=== PATIENT | female | born 1970 | race Caucasian/White ===

== ENCOUNTER 2024-03-16 07:39 | Observation (INO) | payer OTHER ==
--- NOTE | 2024-03-16 07:58 | ED ---
General Adult HPI - General Chief complaint: Chest Pain Stated complaint: Chest pain Time Seen by Provider: 03/16/24 07:43 Source: patient, EMS, RN notes reviewed Mode of arrival: EMS Limitations: no limitations - History of Present Illness Initial comments: Patient is a 53-year-old female present to the emergency department with concerns for chest discomfort. Onset of symptoms was an hour ago while getting ready for work. Patient has pressure in her chest rated 3/10. No radiation. No associated dyspnea, nausea, or diaphoresis. No history of similar symptoms previously. No history of cardiac disease. - Related Data Allergies Allergy/AdvReac Type Severity Reaction Status Date / Time No Known Allergies Allergy Verified 03/16/24 07:49 Review of Systems ROS Statement: Those systems with pertinent positive or pertinent negative responses have been documented in the HPI. ROS Other: All systems not noted in ROS Statement are negative. Constitutional: Denies: fever Eyes: Denies: eye pain ENT: Denies: ear pain Respiratory: Denies: cough, dyspnea Cardiovascular: Reports: as per HPI, chest pain Endocrine: Denies: fatigue Gastrointestinal: Denies: abdominal pain Genitourinary: Denies: dysuria Musculoskeletal: Denies: back pain Skin: Denies: rash Past Medical History Additional Past Medical History / Comment(s): Hyperthyroid History of Any Multi-Drug Resistant Organisms: None Reported Past Psychological History: No Psychological Hx Reported Smoking Status: Never smoker Past Alcohol Use History: None Reported Past Drug Use History: None Reported General Exam Limitations: no limitations General appearance: alert, in no apparent distress Head exam: Present: normocephalic Eye exam: Present: normal appearance Neck exam: Present: normal inspection Respiratory exam: Present: normal lung sounds bilaterally Cardiovascular Exam: Present: regular rate, normal rhythm, normal heart sounds Expanded Peripheral pulses: 2+: Radial (R), Radial (L), Posterior Tibialis (R), Posterior Tibialis (L) GI/Abdominal exam: Present: soft. Absent: tenderness Extremities exam: Present: normal inspection. Absent: pedal edema, calf tenderness Neurological exam: Present: alert Psychiatric exam: Present: normal affect, normal mood Skin exam: Present: normal color Course Vital Signs 03/16/24 03/16/24 07:45 08:19 Temperature 97.8 F 97.6 F Pulse Rate 71 68 Respiratory 18 16 Rate Blood Pressure 137/82 143/88 O2 Sat by Pulse 95 94 L Oximetry EKG Findings - EKG Results: EKG: interpreted by ERMD, sinus rhythm, normal axis, normal QRS, normal ST/T Medical Decision Making - Medical Decision Making Was pt. sent in by a medical professional or institution (ROME Cesar, RN ENT, urgent care, hospital, or [facility]...) When possible be specific @ -No Did you speak to anyone other than the patient for history (EMS, parent, family, police, friend...)? What history was obtained from this source @ -No Did you review nursing and triage notes (agree or disagree)? Why? @ -I reviewed and agree with nursing and triage notes Were old charts reviewed (outside hosp., previous admission, EMS record, old EKG, old radiological studies, urgent care reports/EKG's, [facility] records)? Report findings @ -No old charts were reviewed Differential Diagnosis (chest pain, altered mental status, abdominal pain women, abdominal pain men, vaginal bleeding, weakness, fever, dyspnea, syncope, headache, dizziness, GI bleed, back pain, seizure, CVA, palpatations, mental health, musculoskeletal)? @ -Differential Chest Pain: Stable Angina, Unstable Angina, STEMI, NSTEMI Aortic Dissection, Pneumothorax, Musculoskeletal, Esophageal Spasm GERD, Cholecystitis, Pancreatitis, Zoster, this is not meant to be an all-inclusive list. EKG interpreted by me (3pts min.). @ -As above X-rays interpreted by me (1pt min.). @ -Chest x-ray shows no acute process CT interpreted by me (1pt min.). @ -None done U/S interpreted by me (1pt. min.). @ -None done What testing was considered but not performed or refused? (CT, X-rays, U/S, labs)? Why? @ -None What meds were considered but not given or refused? Why? @ -None Did you discuss the management of the patient with other professionals (professionals i.e. ROME Cesar, RN ENT, lab, RT, psych nurse, social work assistant, forensic ballistics expert, teacher, radiation officer, rn field case manager)? Give summary @ -Case was discussed with practitioner Alejandro who will admit covering hospital call Was smoking cessation discussed for >3mins.? @ -No Was critical care preformed (if so, how long)? @ -No Were there social determinants of health that impacted care today? How? (Homelessness, low income, unemployed, alcoholism, drug addiction, transportation, low edu. Level, literacy, decrease access to med. care, custodial, rehab)? @ -No Was there de-escalation of care discussed even if they declined (Discuss DNR or withdrawal of care, Hospice)? DNR status @ -No What co-morbidities impacted this encounter? (DM, HTN, Smoking, COPD, CAD, Cancer, CVA, ARF, Chemo, Hep., AIDS, mental health diagnosis, sleep apnea, morbid obesity)? @ -None Was patient admitted / discharged? Hospital course, mention meds given and route, prescriptions, significant lab abnormalities, going to OR and other pertinent info. @ -Patient presents with chest discomfort. Initial evaluation unremarkable. Patient will be admitted with cardiac consult, mission orders written. Undiagnosed new problem with uncertain prognosis? @ -No Drug Therapy requiring intensive monitoring for toxicity (Heparin, Nitro, Insulin, Cardizem)? @ -No Were any procedures done? @ -No Diagnosis/symptom? @ -Chest pain Acute, or Chronic, or Acute on Chronic? @ -Acute Uncomplicated (without systemic symptoms) or Complicated (systemic symptoms)? @ -Default Side effects of treatment? @ -No Exacerbation, Progression, or Severe Exacerbation? @ -No Poses a threat to life or bodily function? How? (Chest pain, [place], [place], pneumonia, PE, COPD, DKA, ARF, appy, cholecystitis, CVA, Diverticulitis, Homicidal, Suicidal, threat to staff... and all critical care pts) @ -Threat to cardiac function - Lab Data Result diagrams: 03/16/24 07:50 03/16/24 07:50 Lab Results 03/16/24 03/16/24 03/16/24 Range/Units 07:50 07:50 07:50 WBC 4.7 (3.8-10.6) k/uL RBC 4.45 (3.80-5.40) m/uL Hgb 13.1 (11.4-16.0) gm/dL Hct 40.1 (34.0-46.0) % MCV 90.2 (80.0-100.0) fL MCH 29.4 (25.0-35.0) pg MCHC 32.6 (31.0-37.0) g/dL RDW 14.9 (11.5-15.5) % Plt Count 186 (150-450) k/uL MPV 7.1 Neutrophils % 54 % Lymphocytes % 38 % Monocytes % 4 % Eosinophils % 1 % Basophils % 1 % Neutrophils # 2.5 (1.3-7.7) k/uL Lymphocytes # 1.8 (1.0-4.8) k/uL Monocytes # 0.2 (0-1.0) k/uL Eosinophils # 0.0 (0-0.7) k/uL Basophils # 0.0 (0-0.2) k/uL PT 10.9 (10.0-12.5) sec INR 1.0 (<1.2) APTT 20.3 L (22.0-30.0) sec D-Dimer 0.35 (<0.60) mg/L FEU Sodium 140 (137-145) mmol/L Potassium 4.0 (3.5-5.1) mmol/L Chloride 109 H (98-107) mmol/L Carbon Dioxide 18 L (22-30) mmol/L Anion Gap 13 mmol/L BUN 20 H (7-17) mg/dL Creatinine 0.62 (0.52-1.04) mg/dL Est GFR (CKD-EPI)AfAm >90 (>60 ml/min/1.73 sqM) Est GFR (CKD-EPI)NonAf >90 (>60 ml/min/1.73 sqM) Glucose 106 H (74-99) mg/dL Calcium 9.1 (8.4-10.2) mg/dL Magnesium 1.9 (1.6-2.3) mg/dL Total Bilirubin 0.3 (0.2-1.3) mg/dL AST 26 (14-36) U/L ALT 20 (4-34) U/L Alkaline Phosphatase 89 (38-126) U/L Troponin I (0.000-0.034) ng/mL Total Protein 7.1 (6.3-8.2) g/dL Albumin 4.3 (3.5-5.0) g/dL Amylase 64 (30-110) U/L Lipase 270 (23-300) U/L 03/16/24 Range/Units 07:50 WBC (3.8-10.6) k/uL RBC (3.80-5.40) m/uL Hgb (11.4-16.0) gm/dL Hct (34.0-46.0) % MCV (80.0-100.0) fL MCH (25.0-35.0) pg MCHC (31.0-37.0) g/dL RDW (11.5-15.5) % Plt Count (150-450) k/uL MPV Neutrophils % % Lymphocytes % % Monocytes % % Eosinophils % % Basophils % % Neutrophils # (1.3-7.7) k/uL Lymphocytes # (1.0-4.8) k/uL Monocytes # (0-1.0) k/uL Eosinophils # (0-0.7) k/uL Basophils # (0-0.2) k/uL PT (10.0-12.5) sec INR (<1.2) APTT (22.0-30.0) sec D-Dimer (<0.60) mg/L FEU Sodium (137-145) mmol/L Potassium (3.5-5.1) mmol/L Chloride (98-107) mmol/L Carbon Dioxide (22-30) mmol/L Anion Gap mmol/L BUN (7-17) mg/dL Creatinine (0.52-1.04) mg/dL Est GFR (CKD-EPI)AfAm (>60 ml/min/1.73 sqM) Est GFR (CKD-EPI)NonAf (>60 ml/min/1.73 sqM) Glucose (74-99) mg/dL Calcium (8.4-10.2) mg/dL Magnesium (1.6-2.3) mg/dL Total Bilirubin (0.2-1.3) mg/dL AST (14-36) U/L ALT (4-34) U/L Alkaline Phosphatase (38-126) U/L Troponin I <0.012 (0.000-0.034) ng/mL Total Protein (6.3-8.2) g/dL Albumin (3.5-5.0) g/dL Amylase (30-110) U/L Lipase (23-300) U/L Disposition Clinical Impression: Chest pain Disposition: ADMITTED IP TO THIS HOSP Is patient prescribed a controlled substance at d/c from ED?: No Referrals: Nonstaff,Physician [REFERRING] - 1-2 days Time of Disposition: 10:25
[2024-03-16] MEDS: ASPIRIN 81 MG PO STA (08:09)
[2024-03-16 08:10] LABS: Basophils % (A) 1 %; Eosinophils % (A) 1 %; HCT 40.1 % (34.0-46.0); HGB 13.1 gm/dL (11.4-16.0); Lymphocytes # (A) 1.8 k/uL (1.0-4.8); Lymphocytes % (A) 38 %; MCH 29.4 pg (25.0-35.0); MCHC 32.6 g/dL (31.0-37.0); MCV 90.2 fL (80.0-100.0); Mean Platelet Volume 7.1; Monocytes # (A) 0.2 k/uL (0-1.0); Monocytes % (A) 4 %; Neutrophils # (A) 2.5 k/uL (1.3-7.7); Neutrophils % (A) 54 %; Platelet Count 186 k/uL (150-450); RBC 4.45 m/uL (3.80-5.40); RDW 14.9 % (11.5-15.5); WBC 4.7 k/uL (3.8-10.6)
[2024-03-16] MEDS: NITROGLYCERIN OINT 1 INCH/GM PACKET TOPICAL STA (08:19)
--- NOTE | 2024-03-16 08:22 | XR ---
2 view chest HISTORY: Chest pain COMPARISON: None. TECHNIQUE: PA and lateral views chest obtained. FINDINGS: The lungs are clear of consolidative, interstitial or masslike opacity. There is no pleural effusion, pleural thickening or pneumothorax. The heart, pulmonary vasculature, mediastinum and rae are within normal limits. The osseous structures and soft tissues of the thorax are intact. IMPRESSION: No significant abnormality. No acute cardiopulmonary disease. [facility], Workstation: [facility], 03/16/2024 8:20 AM
[2024-03-16 08:38] LABS: Prothrombin Time 10.9 sec (10.0-12.5)
[2024-03-16 08:47] LABS: Partial Thromboplastin Time 20.3 sec (22.0-30.0)
[2024-03-16 08:49] LABS: ALT 20 U/L (4-34); AST 26 U/L (14-36); African American GFR (CKD) >90 (>60 ml/min/1.73 sqM); Albumin 4.3 g/dL (3.5-5.0); Alkaline Phosphatase 89 U/L (38-126); Amylase 64 U/L (30-110); Anion Gap 13 mmol/L; Blood Urea Nitrogen 20 mg/dL (7-17); Calcium 9.1 mg/dL (8.4-10.2); Carbon Dioxide 18 mmol/L (22-30); Chloride 109 mmol/L (98-107); Glucose 106 mg/dL (74-99); Lipase 270 U/L (23-300); Magnesium 1.9 mg/dL (1.6-2.3); Non-African American GFR(CKD) >90 (>60 ml/min/1.73 sqM); Sodium 140 mmol/L (137-145); Total Bilirubin 0.3 mg/dL (0.2-1.3); Total Protein 7.1 g/dL (6.3-8.2)
[2024-03-16] MEDS ORDERED: NITROGLYCERIN SL TABS 0.4 MG TAB SUBLINGUAL PRN (10:25)
--- NOTE | 2024-03-16 10:46 | P.HPIM ---
History of Present Illness H&P Date: 03/16/24 History of Presenting Illness: Patient is a very pleasant 53-year-old female with a past medical history of hyperthyroidism on methimazole 5 mg daily. She presented to the emergency department with a chief complaint of chest pain. 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 She states she began feeling slightly lightheaded/dizzy followed by severe pressure to her midsternal chest. Patient reports that she sat down but pain persisted. She states she called her to come pick her up but began feeling worse so she called EMS for transfer to the hospital. Patient reports during transport she was given a sublingual nitroglycerin which resulted in improvement of her pain but later returned and was given the Nitropaste in the emergency department again improving her discomfort. She denies any other complaints at this time including headache, changes in vision, palpitations, shortness of breath, cough or congestion, nausea, vomiting, or experiencing any numbness/tingling/weakness/swelling in her extremities. She denies history of known heart disease, hypertension, hyperlipidemia, nicotine use (reports previous nicotine use but quit smoking greater than 2 years ago), or any other complaints. She does report a significant family history of heart disease stating that her mother and father both from a heart attack and her mom at the age of 48. Upon arrival to our facility, patient underwent ev aluation in the emergency department. Vital signs upon arrival show blood pressure 137/82, heart rate 71, respiratory rate 18, temp 97.8 F, and SpO2 of 95% on room air. EKG completed showing normal sinus rhythm at 60 bpm with no significant T wave or ST abnormality showing no signs of acute ischemia upon personal review and interpretation. Chest x-ray completed negative for acute cardiopulmonary process. Labs completed and reviewed. CBC unremarkable. Coagulation profile showing a low PTT of 20.3 otherwise normal findings. D- dimer negative at 0.35. BMP showing high anion gap metabolic acidosis with chloride of 109, bicarb of 18, and anion gap of 13 and mild prerenal azotemia with BUN of 20. Blood glucose 106. Magnesium 1.9. Liver profile unremarkable. Amylase and lipase normal findings. Troponin was negative at less than 0.012. Patient admitted under our services with consultation to cardiology. Review of systems: Pertinent positives and negatives as discussed in HPI, a complete review of systems was performed and all other systems are negative. Physical exam: Vital signs reviewed and stable. General: Nontoxic, no distress and appears stated age. Derm: Skin warm and dry, normal coloration for ethnicity. Head: Atraumatic, normocephalic and symmetric. Eyes: EOM's intact, no lid lag, and anicteric sclera Mouth: no lip lesions, mucus membranes moist Cardiovascular: regular rate and rhythm with normal S1S2, no murmur, positive posterior tibial pulses bilaterally, and cap refill < 2 seconds. Lungs: Respirations even, regular, and unlabored on room air. Lungs CTA bilaterally, no rhonchi, no rales, no wheezing, and no accessory muscle usage. Abdominal: soft, nontender to palpation, no guarding, no appreciable organomegaly Ext: ROM intact. No gross muscle atrophy, no edema, no contractures Neuro: Speech clear, face symmetrical and CN II-XII grossly intact with no noted focal neuro deficits Psych: Alert and oriented to person, place, time, and situation. Appropriate and pleasant affect. Assessment and Plan of Care: Chest pain, rule out acute coronary event High anion gap metabolic acidosis. -Cardiology consulted, appreciate recommendations -Telemetry monitoring -Trend troponins -Patient started on daily aspirin 81 mg daily and atorvastatin 40 mg nightly, -Continue Nitropaste 1 inch every 6 hours. -Lipid profile with a.m. labs. -Echocardiogram Hyperthyroidism -Continue methimazole 5 mg daily. Data and imaging reviewed: -As stated above in HPI. CODE STATUS: Full Code DVT prophylaxis: Lovenox Anticipated discharge date: Pending clinical course Anticipated discharge place: Home Patient was seen independently by Nurse Practitioner. This document was prepared using [employer] dictation software. 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 Alejandro Espino NP rendered care for this patient independently, reviewed the findings and plan as documented in the note above and agree with plan. I did not physically speak with or examine the patient on this date. Past Medical History Additional Past Medical History / Comment(s): Hyperthyroid History of Any Multi-Drug Resistant Organisms: None Reported Past Psychological History: No Psychological Hx Reported Smoking Status: Never smoker Past Alcohol Use History: None Reported Past Drug Use History: None Reported - Past Family History Mother Family Medical History: Myocardial Infarction (IA) Additional Family Medical History / Comment(s): [place] in 30s, at 48 when reparing hole in heart Father Family Medical History: Cancer, Coronary Artery Disease (CAD) Additional Family Medical History / Comment(s): Liver CA Medications and Allergies Home Medications Medication Instructions Recorded Confirmed Type methIMAzole [Tapazole] 5 mg PO DAILY 03/16/24 03/16/24 History Allergies Allergy/AdvReac Type Severity Reaction Status Date / Time No Known Allergies Allergy Verified 03/16/24 10:28 Physical Exam Vitals: Vital Signs Temp Pulse Resp BP Pulse Ox 03/16/24 08:19 97.6 F 68 16 143/88 94 L 03/16/24 07:45 97.8 F 71 18 137/82 95 Intake and Output 03/15/24 03/16/24 03/16/24 22:59 06:59 14:59 Other: Weight 70.307 kg Results CBC & Chem 7: 03/16/24 07:50 03/16/24 07:50 Labs: Abnormal Lab Results - Last 24 Hours (Table) 03/16/24 03/16/24 Range/Units 07:50 07:50 APTT 20.3 L (22.0-30.0) sec Chloride 109 H (98-107) mmol/L Carbon Dioxide 18 L (22-30) mmol/L BUN 20 H (7-17) mg/dL Glucose 106 H (74-99) mg/dL
[2024-03-16] MEDS: NITROGLYCERIN OINT 1 INCH/GM PACKET TOPICAL SCH (11:11)
[2024-03-16] MEDS: methIMAzole 5 MG TAB PO SCH (12:47)
[2024-03-16] MEDS: ATORVASTATIN 40 MG TAB PO SCH (20:15)
[2024-03-17 07:38] LABS: HCT 39.9 % (34.0-46.0); HGB 13.2 gm/dL (11.4-16.0); MCH 29.7 pg (25.0-35.0); MCHC 33.1 g/dL (31.0-37.0); MCV 89.6 fL (80.0-100.0); Mean Platelet Volume 7.4; Platelet Count 187 k/uL (150-450); RBC 4.45 m/uL (3.80-5.40); RDW 15.1 % (11.5-15.5); WBC 4.6 k/uL (3.8-10.6)
[2024-03-17 07:59] LABS: ALT 21 U/L (4-34); AST 25 U/L (14-36); African American GFR (CKD) >90 (>60 ml/min/1.73 sqM); Albumin/Globulin Ratio 1.4; Alkaline Phosphatase 95 U/L (38-126); Anion Gap 5 mmol/L; Blood Urea Nitrogen 18 mg/dL (7-17); Calcium 9.4 mg/dL (8.4-10.2); Carbon Dioxide 25 mmol/L (22-30); Chloride 106 mmol/L (98-107); Globulin 2.9 g/dL; Glucose 102 mg/dL (74-99); Magnesium 1.8 mg/dL (1.6-2.3); Non-African American GFR(CKD) >90 (>60 ml/min/1.73 sqM); Potassium 4.2 mmol/L (3.5-5.1); Sodium 136 mmol/L (137-145); Total Bilirubin 0.6 mg/dL (0.2-1.3); Total Protein 6.9 g/dL (6.3-8.2)
[2024-03-17] MEDS: ENOXAPARIN 40 MG/0.4 ML SYRINGE SQ SCH (08:48)
[2024-03-17] MEDS: ASPIRIN 81 MG PO SCH (08:49)
[2024-03-17] MEDS ORDERED: ASPIRIN 325 MG TAB PO SCH (09:00)
--- NOTE | 2024-03-17 09:07 | CA ---
Transthoracic Echo Report Name: Melly Guzman Age: 53 Gender: F : 1970 Exam Date: 03/16/2024 14:57 Exam Location: [facility] Ht (in): 65 Wt (lb): 155 Ordering Physician: Alejandro Espino Attending/Referring Phys: Associate Designer Wendie Ojeda RDCS Procedure CPT: Indications: CP sig fam hx sudden cardiac w/ moth age 46 Cardiac Hx: Technical Quality: Good Contrast 1: Total Dose (mL): Contrast 2: Total Dose (mL): MEASUREMENTS (Male / Female) Normal Values 2D ECHO LV Diastolic Diameter PLAX 4.8 cm 4.2 - 5.9 / 3.9 - 5.3 cm LV Systolic Diameter PLAX 3.1 cm IVS Diastolic Thickness 0.9 cm 0.6 - 1.0 / 0.6 - 0.9 cm LVPW Diastolic Thickness 1.0 cm 0.6 - 1.0 / 0.6 - 0.9 cm LV Relative Wall Thickness 0.4 RV Internal Dim ED PLAX 3.0 cm LA Systolic Diameter LX 3.0 cm 3.0 - 4.0 / 2.7 - 3.8 cm LA Volume 47.9 cm??? 18 - 58 / 22 - 52 cm??? LA Volume Index 26.5 cm???/m??? 16 - 28 cm???/m??? M-MODE Aortic Root Diameter MM 2.9 cm AV Cusp Separation MM 2.3 cm DOPPLER AV Peak Velocity 133.8 cm/s AV Peak Gradient 7.2 mmHg MV Area PHT 3.2 cm??? Mitral E Point Velocity 51.2 cm/s Mitral A Point Velocity 60.6 cm/s Mitral E to A Ratio 0.8 MV Deceleration Time 239.5 ms TR Peak Velocity 187.2 cm/s TR Peak Gradient 14.0 mmHg Right Ventricular Systolic Press 19.0 mmHg FINDINGS Left Ventricle Left ventricular ejection fraction is estimated at 55-60 %. Left ventricular cavity size normal. Left ventricular wall thickness normal. Normal left ventricular wall motion. Right Ventricle Normal right ventricular size and function. Right ventricular systolic pressure within normal limits. Right Atrium Normal right atrial size. No right atrial thrombus or mass seen. Left Atrium Normal left atrial size. No left atrial thrombus or mass present. Mitral Valve Structurally normal mitral valve. Trace to mild mitral regurgitation. Aortic Valve Trileaflet aortic valve. No aortic valve stenosis or regurgitation. Tricuspid Valve Structurally normal tricuspid valve. Trace to mild tricuspid regurgitation. Pulmonic Valve Structurally normal pulmonic valve. No pulmonic regurgitation. Pericardium No pericardial or pleural effusion. Aorta Normal size aortic root and proximal ascending aorta. CONCLUSIONS Normal LV function Previewed by: Dr. Vlad Márquez MD (Electronically Signed) Final Date: 17 March 2024 09:06
--- NOTE | 2024-03-17 10:03 | P.CRDCN ---
History of Present Illness History of present illness: HISTORY OF PRESENT ILLNESS: This is a 53-year-old female with a past medical history significant for hyperthyroidism. Patient does not follow with a olive grader. We have been asked to see the patient in consultation for chest pain. Patient examined at the bedside. 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 She states that she also reports ported having chest pain which appears to be more epigastric pain. She states that she felt like she had to burp so she drank some soda water but did not have any relief. She came to the ER for further evaluation. She did receive sublingual nitro which relieved her pain. She states the pain then came back again and she was given Nitropaste which relieved the pain. She denies any further episodes of chest pain or pressure. She currently denies shortness of breath. She is a non-smoker. He reports a family history of coronary artery disease in both her mother and father. Her mother at the age of 48. DIAGNOSTICS: - EKG reveals sinus mechanism with no signs of acute ischemia - Chest xray negative for acute process - Laboratory data: WBC 4.6. Hemoglobin 13.2. Platelet count 187. D-dimer 0.35. Sodium 136. Potassium 4.2. BUN 18. Creatinine 0.60. Troponin negative x 3. - Current home cardiac medications include none - Echocardiogram obtained this admission reveals ejection fraction 55 to 60%, trace to mild MR, trace to mild TR - Cardiac catheterization history: Patient denies REVIEW OF SYSTEMS: At the time of my exam: CONSTITUTIONAL: Denies fever or chills. HEENT: Denies blurred vision, vision changes, or eye pain. Denies hemoptysis CARDIOVASCULAR: Denies chest pain. Denies orthopnea. Denies PND. Denies palpitations RESPIRATORY: Denies shortness of breath. GASTROINTESTINAL: Denies abdominal pain. Denies nausea or vomiting. HEMATOLOGIC: Denies bleeding disorders. GENITOURINARY: Denies any blood in urine. SKIN: Denies pruitis. Denies rash. PHYSICAL EXAM: VITAL SIGNS: Reviewed. GENERAL: Well-developed in no acute distress. HEENT: Head is normocephalic. Pupils are equal, round. Sclerae anicteric. Mucous membranes of the mouth are moist. Neck supple. No JVD or thyromegaly LUNGS: Respirations even and unlabored. Lungs essentially clear to auscultation bilaterally. HEART: Regular rate and rhythm. S1 and S2 heard. ABDOMEN: Soft. Nondistended. Nontender. EXTREMITIES: Normal range of motion. No clubbing or cyanosis. Peripheral pulses intact. No lower extremity edema NEUROLOGIC: Awake and alert. Oriented x 3. ASSESSMENT: Chest pain Hypothyroidism Family history of premature coronary artery disease PLAN: An acute coronary event has been ruled out 2D echo obtained and reviewed Continue aspirin and atorvastatin Continue sublingual nitro as needed Discussed options with patient including stress testing versus cardiac catheterization. Patient would like to proceed with stress testing Patient to undergo stress echocardiogram tomorrow If negative, she may be discharged home from a cardiac standpoint Further recommendations pending patient course Nurse practitioner note has been reviewed by physician. Signing provider agrees with the documented findings, assessment, and plan of care documented by LOOM OVERHAULER as a scribe. Past Medical History Additional Past Medical History / Comment(s): Hyperthyroid History of Any Multi-Drug Resistant Organisms: None Reported Additional Past Surgical History / Comment(s): 2 D&C, colonscopy within last year Past Anesthesia/Blood Transfusion Reactions: No Reported Reaction Past Psychological History: No Psychological Hx Reported Smoking Status: Never smoker Past Alcohol Use History: None Reported Past Drug Use History: None Reported - Past Family History Mother Family Medical History: Myocardial Infarction (MS) Additional Family Medical History / Comment(s): MS in 30s, at 48 when reparing hole in heart Father Family Medical History: Cancer, Coronary Artery Disease (CAD) Additional Family Medical History / Comment(s): Liver CA Medications and Allergies Home Medications Medication Instructions Recorded Confirmed Type methIMAzole [Tapazole] 5 mg PO DAILY 03/16/24 03/16/24 History Allergies Allergy/AdvReac Type Severity Reaction Status Date / Time No Known Allergies Allergy Verified 03/16/24 10:28 Physical Exam Vitals: Vital Signs Temp Pulse Pulse Pulse Resp BP BP 03/17/24 07:00 97.9 F 63 16 121/77 03/17/24 00:49 97.8 F 77 18 117/72 03/16/24 19:54 97.8 F 91 18 146/83 03/16/24 14:37 98.2 F 83 16 112/70 03/16/24 11:36 98 F 80 18 120/74 03/16/24 11:11 97.7 F 77 16 122/72 03/16/24 08:19 97.6 F 68 16 143/88 Pulse Ox 03/17/24 07:00 98 03/17/24 00:49 95 03/16/24 19:54 95 03/16/24 14:37 94 L 03/16/24 11:36 94 L 03/16/24 11:11 96 03/16/24 08:19 94 L Intake and Output 03/16/24 03/17/24 03/17/24 22:59 06:59 14:59 Intake Total 118 480 Balance 118 480 Intake: Oral 118 480 Other: # Voids 3 Results 03/17/24 07:23 03/17/24 07:23 Cardiac Enzymes 03/16/24 03/16/24 03/16/24 Range/Units 07:50 07:50 12:12 AST 26 (14-36) U/L Troponin I <0.012 <0.012 (0.000-0.034) ng/mL 03/16/24 Range/Units 15:44 AST (14-36) U/L Troponin I <0.012 (0.000-0.034) ng/mL Coagulation 03/16/24 Range/Units 07:50 PT 10.9 (10.0-12.5) sec APTT 20.3 L (22.0-30.0) sec CBC 03/16/24 03/17/24 Range/Units 07:50 07:23 WBC 4.7 4.6 (3.8-10.6) k/uL RBC 4.45 4.45 (3.80-5.40) m/uL Hgb 13.1 13.2 (11.4-16.0) gm/dL Hct 40.1 39.9 (34.0-46.0) % Plt Count 186 187 (150-450) k/uL Comprehensive Metabolic Panel 03/16/24 Range/Units 07:50 Sodium 140 (137-145) mmol/L Potassium 4.0 (3.5-5.1) mmol/L Chloride 109 H (98-107) mmol/L Carbon Dioxide 18 L (22-30) mmol/L BUN 20 H (7-17) mg/dL Creatinine 0.62 (0.52-1.04) mg/dL Glucose 106 H (74-99) mg/dL Calcium 9.1 (8.4-10.2) mg/dL AST 26 (14-36) U/L ALT 20 (4-34) U/L Alkaline Phosphatase 89 (38-126) U/L Total Protein 7.1 (6.3-8.2) g/dL Albumin 4.3 (3.5-5.0) g/dL Current Medications Generic Name Dose Route Start Last Admin Trade Name Freq PRN Reason Stop Dose Admin Aspirin 81 mg 03/17/24 09:00 Aspirin 81 Mg PO DAILY TIFF Atorvastatin Calcium 40 mg 03/16/24 21:00 03/16/24 20:15 Atorvastatin 40 Mg Tab PO 40 mg HS TIFF Administration Enoxaparin Sodium 40 mg 03/17/24 09:00 Enoxaparin 40 Mg/0.4 Ml Syringe SQ DAILY [facility] Methimazole 5 mg 03/16/24 11:00 03/16/24 12:47 Methimazole 5 Mg Tab PO 5 mg DAILY TIFF Administration Nitroglycerin 0.4 mg 03/16/24 10:25 Nitroglycerin Sl Tabs 0.4 Mg Tab SUBLINGUAL Q5M PRN Chest Pain Nitroglycerin 1 inch 03/16/24 12:00 03/17/24 05:53 Nitroglycerin Oint 1 Inch/Gm Packet TOPICAL Not Given Q6HR TIFF Intake and Output 03/16/24 03/17/24 03/17/24 22:59 06:59 14:59 Intake Total 118 480 Balance 118 480 Intake: Oral 118 480 Other: # Voids 3 03/17/24 07:23 03/16/24 07:50
--- NOTE | 2024-03-17 12:09 | P.PN ---
Subjective Progress Note Date: 03/17/24 History of Presenting Illness: Patient is a very pleasant 53-year-old female with a past medical history of hyperthyroidism on methimazole 5 mg daily. She presented to the emergency de partment with a chief complaint of chest pain. 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 She states she began feeling slightly lightheaded/dizzy followed by severe pressure to her midsternal chest. Patient reports that she sat down but pain persisted. She states she called her to come pick her up but began feeling worse so she called EMS for transfer to the hospital. Patient reports during transport she was given a sublingual nitroglycerin which resulted in improvement of her pain but later returned and was given the Nitropaste in the emergency department again improving her discomfort. She denies any other complaints at this time inc luding headache, changes in vision, palpitations, shortness of breath, cough or congestion, nausea, vomiting, or experiencing any numbness/tingling/weakness/swelling in her extremities. She denies history of known heart disease, hypertension, hyperlipidemia, nicotine use (reports previous nicotine use but quit smoking greater than 2 years ago), or any other complaints. She does report a significant family history of heart disease stating that her mother and father both from a heart attack and her mom at the age of 48. Upon arrival to our facility, patient underwent evaluation in the emergency department. Vital signs upon arrival show blood pressure 137/82, heart rate 71, respiratory rate 18, temp 97.8 F, and SpO2 of 95% on room air. EKG completed showing normal sinus rhythm at 60 bpm with no significant T wave or ST abnormality showing no signs of acute ischemia upon personal review and interpretation. Chest x-ray completed negative for acute cardiopulmonary process. Labs completed and reviewed. CBC unremarkable. Coagulation profile showing a low PTT of 20.3 otherwise normal findings. D- dimer negative at 0.35. BMP showing high anion gap metabolic acidosis with chloride of 109, bicarb of 18, and anion gap of 13 and mild prerenal azotemia with BUN of 20. Blood glucose 106. Magnesium 1.9. Liver profile unremarkable. Amylase and lipase normal findings. Troponin was negative at less than 0.012. Patient admitted under our services with consultation to cardiology. Troponins were trended overnight all negative at less than 0.012 x 3 draws. Patient reports chest pain has remained subsided since placement of Nitropaste. Physical exam: Patient seen and fully evaluated at bedside this morning. She was resting comfortably visiting with daughter at bedside. Patient reports chest pain has remained resolved since placement of Nitropaste. She denies any other complaints at this time. She is awaiting for stress test to be completed tomorrow. Nitropaste was discontinued and will monitor for return of chest pain. Patient has as needed sublingual nitro if chest pain returns. Vital signs reviewed and stable. General: Nontoxic, no distress and appears stated age. Derm: Skin warm and dry, normal coloration for ethnicity. Head: Atraumatic, normocephalic and symmetric. Eyes: EOM's intact, no lid lag, and anicteric sclera Mouth: no lip lesions, mucus membranes moist Cardiovascular: regular rate and rhythm with normal S1S2, no murmur, positive posterior tibial pulses bilaterally, and cap refill < 2 seconds. Lungs: Respirations even, regular, and unlabored on room air. Lungs CTA bilaterally, no rhonchi, no rales, no wheezing, and no accessory muscle usage. Abdominal: soft, nontender to palpation, no guarding, no appreciable o rganomegaly Ext: ROM intact. No gross muscle atrophy, no edema, no contractures Neuro: Speech clear, face symmetrical and CN II-XII grossly intact with no noted focal neuro deficits Psych: Alert and oriented to person, place, time, and situation. Appropriate and pleasant affect. Assessment and Plan of Care: Chest pain, acute coronary event ruled out. High anion gap metabolic acidosis, resolved. -Cardiology consulted, appreciate recommendations -Telemetry monitoring -Troponins negative at less than 0.012 x 3 draws. -Continue aspirin 81 mg daily and atorvastatin 40 mg nightly, -Continue sublingual nitro 0.4 mg every 5 minutes as needed for chest pain. -Lipid profile with a.m. labs. -Echocardiogram Hyperthyroidism -Continue methimazole 5 mg daily. Data and imaging reviewed: -Labs reviewed. CBC unremarkable. BMP showing resolution of high anion gap metabolic acidosis with chloride of 106, bicarb of 25, and anion gap of 5. BUN slightly elevated at 18 otherwise normal findings. Blood glucose 102. Magnesium 1.8. Liver profile unremarkable. Troponins trended overnight all neg ative at less than 0.012 x 3 draws. -Vital signs reviewed. Blood pressure 121/77, heart rate 63, respiratory rate 16, temp 97.9 F, and SpO2 of 98% on room air. CODE STATUS: Full Code DVT prophylaxis: Lovenox Anticipated discharge date: Pending clinical course, patient scheduled for stress test tomorrow. Anticipated discharge place: Home Patient was seen independently by Nurse Practitioner. This document was prepared using [employer] dictation software. 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 Alejandro Espino NP rendered care for this patient independently, reviewed the findings and plan as documented in the note above and agree with plan. I did not physically speak with or examine the patient on this date. Objective - Vital Signs Vital signs: Vital Signs Temp 97.9 F 03/17/24 07:00 Pulse 63 03/17/24 07:00 Resp 16 03/17/24 07:00 BP 121/77 03/17/24 07:00 Pulse Ox 98 03/17/24 07:00 FiO2 Intake & Output 03/16/24 03/17/24 03/17/24 18:59 06:59 18:59 Intake Total 118 480 Balance 118 480 Weight 70.307 kg Intake: Oral 118 480 Other: # Voids 1 3 - Labs CBC & Chem 7: 03/17/24 07:23 03/17/24 07:23 Labs: Abnormal Lab Results - Last 24 Hours (Table) 03/17/24 Range/Units 07:23 Sodium 136 L (137-145) mmol/L BUN 18 H (7-17) mg/dL Glucose 102 H (74-99) mg/dL
[2024-03-17 12:52] LABS: Chol/HDL Ratio 3.04 Ratio; LDL Cholesterol,Calculated 90.1 mg/dL (0.0-131.0)
--- NOTE | 2024-03-18 11:15 | P.PN ---
Subjective Progress Note Date: 03/18/24 HISTORY OF PRESENT ILLNESS: This is a 53-year-old female with a past medical history significant for hy perthyroidism. Patient does not follow with a administrative hearing officer. We have been asked to see the patient in consultation for chest pain. Patient examined at the bedside. 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 She states that she also reports ported having chest pain which appears to be more epigastric pain. She states that she felt like she had to burp so she drank some soda water but did not have any relief. She came to the ER for further evaluation. She did receive sublingual nitro which relieved her pain. She states the pain then came back again and she was given Nitropaste which relieved the pain. She denies any further episodes of chest pain or pressure. She currently denies shortness of breath. She is a non-smoker. He reports a family history of coronary artery disease in both her mother and father. Her mother at the age of 48. DIAGNOSTICS: - EKG reveals sinus mechanism with no signs of acute ischemia - Chest xray negative for acute process - Laboratory data: WBC 4.6. Hemoglobin 13.2. Platelet count 187. D-dimer 0.35. Sodium 136. Potassium 4.2. BUN 18. Creatinine 0.60. Troponin negative x 3. - Current home cardiac medications include none - Echocardiogram obtained this admission reveals ejection fraction 55 to 60%, trace to mild MR, trace to mild TR - Cardiac catheterization history: Patient denies 03/18/2024 Patient seen and examined. Patient is scheduled for stress echocardiogram this morning. She denies having any chest pain. Blood pressure 123/79, heart rate 69, pulse ox 96% on room air. TSH came back at less than 0.015. PHYSICAL EXAM: VITAL SIGNS: Reviewed. GENERAL: Well-developed in no acute distress. HEENT: Head is normocephalic. Pupils are equal, round. Sclerae anicteric. Mucous membranes of the mouth are moist. Neck supple. No JVD or thyromegaly LUNGS: Respirations even and unlabored. Lungs essentially clear to auscultation bilaterally. HEART: Regular rate and rhythm. S1 and S2 heard. ABDOMEN: Soft. Nondistended. Nontender. EXTREMITIES: Normal range of motion. No clubbing or cyanosis. Peripheral pulses intact. No lower extremity edema NEUROLOGIC: Awake and alert. Oriented x 3. ASSESSMENT: Chest pain Hypothyroidism, attending to address abnormal TSH Family history of premature coronary artery disease PLAN: An acute coronary event has been ruled out 2D echo obtained and reviewed Continue aspirin and atorvastatin Continue sublingual nitro as needed Patient to undergo stress echocardiogram today If negative, she may be discharged home from a cardiac standpoint Further recommendations pending patient course Nurse practitioner note has been reviewed by physician. Signing provider agrees with the documented findings, assessment, and plan of care documented by RESTORATIVE REHAB AIDE as a scribe. Objective - Vital Signs Vital signs: Vital Signs Temp 97.7 F 03/18/24 07:10 Pulse 69 03/18/24 07:10 Resp 15 03/18/24 07:10 BP 123/79 03/18/24 07:10 Pulse Ox 96 03/18/24 07:10 FiO2 Intake & Output 03/17/24 03/18/24 03/18/24 18:59 06:59 18:59 Intake Total 354 Balance 354 Intake: Oral 354 Other: # Voids 3 1 - Labs CBC & Chem 7: 03/17/24 07:23 03/17/24 07:23 Labs: Abnormal Lab Results - Last 24 Hours (Table) 03/17/24 Range/Units 07:23 Triglycerides 150.00 H (0.00-149.00) mg/dL
--- NOTE | 2024-03-18 11:48 | CA ---
Stress Echo Report Melly Guzman Age: 53 Gender: F : 1970 Exam Date: 03/18/2024 10:55 Exam Location: [facility] Ht (in): 65 Wt (lb): 155 Ordering Physician: Diane Page Referring Physician: [id number] Peer Specialist: Wendie Ojeda RDCS Technologist Procedure CPT: Indication: CP ICD-9 Codes: Rhythm: Patient History: Chest pain Cardiac Medications: Medications in past 24 hours: Contrast: Stress Results Protocol: Miguel Total dose(mL): Exercise Duration (min:sec): 6:[address] Depression (mm): Angina Score: Newman Score: METS: 7.3 Resting HR: 70 Resting BP: 147 / 86 Peak HR: 178 Peak BP: 145 / 81 Max Predicted HR: 165 108 % Max Predicted HR Target HR: 140 Double Product: 44141 Stress Summary: BP Response: Reason for Termination: Target HR Cardiac Symptoms: DIFFICULTY IN BREATHING ECG Analysis Resting ECG: Stress ECG: Arrhythmia: Echo Analysis Resting Echo: Peak Echo Analysis: MEASUREMENTS (Male/Female) Normal Values CONCLUSIONS Baseline EKG revealed a normal sinus rhythm with minor right ventricular conduction delay. Patient walked on a standard Miguel protocol for 6 minutes and achieved a maximum heart rate of 178 bpm. Developed shortness of breath at peak exercise but no angina. EKG did not reveal any ST segment changes to indicate ischemia. There was no arrhythmia. By EKG criteria this is a negative stress test with fair exercise capacity. Baseline echo images revealed normal wall motion wall thickening. The parasternal long axis was not a good resting image. However at peak exercise, there was good augmentation of left ventricular wall motion wall thickening of all segments suggesting that there is no evidence of stress-induced ischemia on this study Final impression: Fair exercise capacity with a negative stress test by EKG criteria and normal stress echocardiogram. Dr. Julia Joel MD (Electronically Signed) Final Date: 18 March 2024 11:47
--- NOTE | 2024-03-18 13:39 | P.DS ---
Providers Date of admission: 03/16/24 10:26 Expected date of discharge: 03/18/24 Attending physician: Alan Oneill MD Consults: 03/16/24 10:25 Consult Physician Urgent Consulting Provider: Vlad Márquez Consult Reason/Comments: cp Do you want consulting provider notified?: Yes Primary care physician: Nadya Wright DO Hospital Course: Discharge Diagnosis: Chest pain, acute coronary event ruled out. High anion gap metabolic acidosis, resolved. Hyperthyroidism. Continue methimazole 5 mg daily. TSH was low at less than 0. 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 Hospital Course: Patient is a very pleasant 53-year-old female with a past medical history of hyperthyroidism on methimazole 5 mg daily. She presented to the emergency department with a chief complaint of chest pain. She denies history of known heart disease, hypertension, hyperlipidemia, nicotine use (reports previous nicotine use but quit smoking greater than 2 years ago), or any other complaints. She does report a significant family history of heart disease stating that her mother and father both from a heart attack and her mom at the age of 48. Upon arrival to our facility, patient underwent evaluation in the emergency department. Vital signs upon arrival show blood pressure 137/82, heart rate 71, respiratory rate 18, temp 97.8 F, and SpO2 of 95% on room air. EKG completed showing normal sinus rhythm at 60 bpm with no significant T wave or ST abnormality showing no signs of acute ischemia upon personal review and interpretation. Chest x-ray completed negative for acute cardiopulmonary process. Labs completed and reviewed. CBC unremarkable. Coagulation profile showing a low PTT of 20.3 otherwise normal findings. D- dimer negative at 0.35. BMP showing high anion gap metabolic acidosis with chloride of 109, bicarb of 18, and anion gap of 13 and mild prerenal azotemia with BUN of 20. Blood glucose 106. Magnesium 1.9. Liver profile unremarkable. Amylase and lipase normal findings. Troponin was negative at less than 0.012. Patient admitted under our services with consultation to cardiology. Troponins were trended overnight all negative at less than 0.012 x 3 draws. Patient reports chest pain has remained subsided since placement of Nitropaste. Lipid profile showed elevated triglycerides of 150 otherwise normal findings. Echocardiogram was completed showing a preserved EF of 55 to 60% with no significant valvular or structural abnormalities reported. Patient was evaluated by cardiology and taken for stress echo. Stress echo showing fair exercise capacity with a negative stress test by EKG criteria and normal stress echocardiogram. Physical exam: Patient seen and fully evaluated at bedside this morning. She was resting comfortably visiting with daughter at bedside. Patient reports chest pain has remained resolved since placement of Nitropaste. She denies any other complaints at this time. She is awaiting for stress test to be completed tomorrow. Nitropaste was discontinued and will monitor for return of chest pain. Patient has as needed sublingual nitro if chest pain returns. Vital signs reviewed and stable. General: Nontoxic, no distress and appears stated age. Derm: Skin warm and dry, normal coloration for ethnicity. Head: Atraumatic, normocephalic and symmetric. Eyes: EOM's intact, no lid lag, and anicteric sclera Mouth: no lip lesions, mucus membranes moist Cardiovascular: regular rate and rhythm with normal S1S2, no murmur, positive posterior tibial pulses bilaterally, and cap refill < 2 seconds. Lungs: Respirations even, regular, and unlabored on room air. Lungs CTA bilaterally, no rhonchi, no rales, no wheezing, and no accessory muscle usage. Abdominal: soft, nontender to palpation, no guarding, no appreciable organomegaly Ext: ROM intact. No gross muscle atrophy, no edema, no contractures Neuro: Speech clear, face symmetrical and CN II-XII grossly intact with no noted focal neuro deficits Psych: Alert and oriented to person, place, time, and situation. Appropriate and pleasant affect. A total of 33 minutes of time were spent preparing this complex discharge summary. Pt was discharged on 03/18/2024 at 1:38 PM. Patient was seen independently by Nurse Practitioner. This document was prepared using [employer] dictation software. Please allow for errors in filbert [employer]er while rare they do occur. Alejandro Espino NP rendered care for this patient independently, reviewed the findings and plan as documented in the note above. I did not physically speak with or examine the patient on this date. Patient Condition at Discharge: Stable Plan - Discharge Summary Discharge Rx Participant: No New Discharge Prescriptions: New Atorvastatin [Lipitor] 40 mg PO HS 30 Days #30 tab Continue methIMAzole [Tapazole] 5 mg PO DAILY Discharge Medication List methIMAzole [Tapazole] 5 mg PO DAILY 03/16/24 [History] Atorvastatin [Lipitor] 40 mg PO HS 30 Days #30 tab 03/18/24 [Rx] Follow up Appointment(s)/Referral(s): [facility] [NON-STAFF] - 1 Week (Please call to schedule appointment for follow-up prior to discharging patient.) Patient Instructions/Handouts: Chest Pain (DC) Activity/Diet/Wound Care/Special Instructions: Activity: As tolerated. Take breaks as needed. Diet: Heart healthy and carb consistent diet. Avoid salts, or foods with hidden salts such as canned or boxed foods and frozen dinners. Extra salt makes your heart work harder and traps the fluid in your body for longer. Special Instructions: Take all of your medications as directed and remember to keep all of your doctor's appointments and follow-up as needed. TSH was low and your free T4 was normal, this could be an indication of subclinical hyperthyroidism. If you continue to have elevated heart rates or experienced palpitations you will need to follow-up outpatient with your electrician [employer] as additional adjustments may be needed to your methimazole dose. Wishing you and your family a truly wonderful and blessed holiday season and a happy healthy new year!!! Thank you for allowing us to participate in your care, it was truly a pleasure having you for our patient!!! Discharge Disposition: HOME SELF-CARE
[2024-03-18 14:41] VITALS: BP 120/76; PULSE 88; RESP 17; TEMP 98.1
== END 2024-03-18 15:07 | disposition home or self-care (01) ==
LOC: EC 07:39 → 6NMEDSUR 10:26
PROVIDERS: ADMIT Family Medicine; ATTEND Family Medicine
DX: R07.89 Other chest pain (principal); E87.20 Acidosis, unspecified; E05.90 Thyrotoxicosis, unspecified without thyrotoxic crisis or storm; R10.13 Epigastric pain; R79.89 Other specified abnormal findings of blood chemistry; Z79.899 Other long term (current) drug therapy; Z87.891 Personal history of nicotine dependence; Z82.49 Family history of ischemic heart disease and other diseases of the circulatory system
CPT/HCPCS: 99285; 36415; 93005; 93306; 93351; 85379; 84439; 80061; 80053 ×2; 84443; 82150; 83690; 83735 ×2; 84484; 85025; 85027; 85610; 85730; 71046; G0378 ×3